=== PATIENT | male | born 1930 | race Caucasian/White ===

== ENCOUNTER 2016-07-19 11:35 | Emergency (ER) | payer MEDICARE, MEDICAID ==
[~2016-07-19] VITALS: Ht 177.8 cm; Wt 104.5 kg
[~2016-07-19 11:35] MED LIST: ATACAND; INSU100C2; lipitor
[2016-07-19 11:44] VITALS: BP 139/65; PULSE 59; RESP 18; O2SAT 96
--- NOTE | 2016-07-19 11:46 | ED.REPORT ---
HPI-General Illness Date of Service Jul 19, 2016 ED Provider: Demond Mason MD The patient is an 86 year old make with history of diabetes mellitus and s/p CABG, who presents to the emergency department by EMS for shortness of breath that he noticed around 0800 this morning. The patient has intermittent episodes of shortness of breath with exertion. His episode today was similar to previous episodes. He did not want to come to the hospital but his neighbor called medics and felt that he should be evaluated. He denies chest pain, cough, lower extremity swelling, fever, chills, vomiting or diarrhea. He denies history of COPD, CHF, asthma or blood clots. He denies any new medications or changes to medications. Nursing Notes Stated Complaint: SOB Chief Complaint: General Complaint Nursing Notes Reviewed: Yes Allergies: Uncoded Allergies: TETANUSTOXOID (Allergy, Severe, 03/03/09) Tetanus Toxoid (Allergy, Severe, 06/14/05) Miscellaneous Medications ([atacand]) ([lipitor]) Insulin Glargine-Expunged Drug, Do Not Renew! (Lantus-Expunged Drug, Do Not Renew!) 100 U/Ml Cartridge General Time Seen by MD: 11:45 Chief Complaint Other (shortness of breath) Hx Obtained From: Patient, EMS Arrived By: Ambulance Sudden in Onset?: No Onset Occurred: 1 - 4 hours ago Symptom Duration: 1 - 4 hours Severity: Current: No pain currently Severity: Maximum: No pain Recent Healthcare: No recent doctor visit, No recent hospitalization Similar Sx Previous: Yes Past Medical History Past Medical History Reports: Diabetes mellitus Past Surgical History Reports: CABG Family History Noncontributory Social History Other Social History: Good social support, Lives in [facility], Local resident Ambulatory Status Cane Review of Systems Full Review of Systems Constitutional: Denies: Chills, Fever Respiratory: Reports: Dyspnea on exertion, Shortness of breath, Denies: Non-productive cough, Prod cough, bloody, Prod cough, brown, Prod cough, clear, Prod cough, green, Prod cough, white, Prod cough, yellow Cardiovascular: Denies: Chest pain GI: Denies: Diarrhea, Vomiting Musculoskeletal: Denies: Extremity swelling Complete sys rev & neg: except as marked. Physical Exam Vital Signs Vital Signs Date Time Temp Pulse Resp B/P Pulse Ox O2 Delivery O2 Flow Rate FiO2 3/14/17 13:28 16 136/76 98 Room Air 07/19/16 11:44 36.6 59 18 139/65 96 Room Air Initial VS: Reviewed Head / Eyes: Atraumatic, Normocephalic, PERRL Neck: Supple, Non-tender, Full range of motion Abdomen / GI: Soft, Non-tender, No guarding, No rebound, No distention Lymphatic: No lymphadenopathy Extremities: Vascular intact, Neuro intact, No swelling, No tenderness Skin: Warm, Dry, No cyanosis Neurologic: Alert, Oriented, Nonfocal Psychiatric: Mood/affect normal, Behavior normal, Normal thought content General/Constitutional: Awake, Alert, Cooperative ENT: Airway patent Mouth: Positive: Mucous membranes dry Respiratory / Chest: Atraumatic, Breath sounds NL, Breath sounds = bilat, No respiratory distress, No rales, No rhonchi, No wheezing, No retractions, No stridor, No chest tenderness, No chest wall deformity Cardiovascular: Heart rate NL, Regular rhythm, Heart sounds NL, No gallop, No murmurs, No rubs, Cap refill not delayed, Peripheral circulation NL Lower Extremity / Pelvis / MS: Neurologic intact, Vascular intact No calf swelling or tenderness. No pitting edema. No palpale cords. Interpretation & Diagnostics Lab Results Interpretation Result Diagram: 07/19/16 1141 07/19/16 1141 Test 07/19/16 11:41 White Blood Count 8.1th/mm3 (3.8-10.1) Red Blood Count 4.04mil/mm3 (4.40-5.80) Hemoglobin 13.3g/dL (13.8-17.2) Hematocrit 37.7% (41.0-50.0) Mean Corpuscular Volume 93.3fL (81-100) Mean Corpuscular Hemoglobin 32.9pg (27.0-35.0) Mean Corpuscular Hemoglobin Concent 35.3% (32.0-37.0) Red Cell Distribution Width 13.3% (12.3-15.4) Platelet Count 175bil/L (150-400) Neutrophils (%) (Auto) 67.9% (40-74) Lymphocytes (%) (Auto) 20.1% (14-46) Monocytes (%) (Auto) 9.8% (4-12) Eosinophils (%) (Auto) 1.6% (0-5) Basophils (%) (Auto) 0.5% (0-3) Prothrombin Time 10.6sec (8.1-12.5) Prothromb Time International Ratio 0.99ratio Sodium Level 141mEq/L (134-144) Potassium Level 4.1mEq/L (3.5-5.2) Chloride Level 100mEq/L (97-108) Carbon Dioxide Level 25mmol/L (18-29) Blood Urea Nitrogen 22mg/dL (8-27) Creatinine 1.06mg/dL (0.76-1.27) Estimat Glomerular Filtration Rate 70mL/min (>59) Glucose Level 309mg/dL (60-99) Calcium Level 8.7mg/dL (8.5-10.1) Magnesium Level 2.2mg/dL (1.6-2.6) Total Bilirubin 0.8mg/dL (0.0-1.2) Aspartate Amino Transf (AST/SGOT) 27U/L (0-50) Alanine Aminotransferase (ALT/SGPT) 24U/L (0-44) Alkaline Phosphatase 49U/L (25-160) Troponin T 0.010ug/L (0.0-0.011) Pro-B-Type Natriuretic Peptide 458.8pg/mL (0-486) Total Protein 6.5g/dL (6.4-8.4) Albumin 3.9g/dL (3.4-5.0) ECG Interpretation ECG Interpretation: Sinus rhythm with a rate of 53 bpm Prolonged ND interval No acute ST changes No acute T wave abnormalities Borderline inferior Q waves No prior available for comparison Time: 12:27 Interpreted by: ED physician X-Ray Chest Interpretation Chest Xray Interpretation: IMPRESSION: No acute cardiopulmonary disease process. Dictated by: Kristine Gonsales MD, PhD on 07/19/2016 at 12:42 Interpretation / Wet Read by: Interpret - Radiologist Re-Eval/Medical Decision Med Decision/Clinical Course The patient is an 86 year old make with history of diabetes mellitus and CAD s/ p CABG, who presents to the emergency department by EMS for shortness of breath that he noticed around 0800 this morning. The patient reports that he experiences intermittent shortness of breath with exertion at baseline and that this was nothing out of the ordinary. He states that a neighbor called the ambulance and that he otherwise never would have called EMS or come to the emergency department for this. Upon arrival he is completely asymptomatic and in no respiratory distress with good oxygen saturation on room air and stable vital signs. CXR: Obtained, reviewed and interpreted by myself shows no evidence of acute infiltrates, effusions or pneumothorax. Cardiac and mediastinal silhouette normal. No bony or soft tissue abnormalities. EKG was obtained and interpreted by myself as documented above. Laboratory studies notable as below: No leukocytosis, hct 37.7, CBC otherwise unremarkable, CMP is unremarkable except glucose of 309, troponin neg, BNP 458, coag studies normal. Patient remained with stable vital signs and good oxygen saturation on room air throughout his emergency department visit. He continued to report being at his regular baseline. He was able to ambulate without any significant dyspnea. Examination of his lower extremity reveals no findings just DVT and he does not have any recent major risk factors for DVT. He is without tachypnea, tachycardia or hypoxia or major risk factors for pulmonary embolism. I do not feel that further workup for PE is indicated. Patient never had any chest pain and in the setting of symptoms occurring greater than 4 hours ago with negative troponin and negative initial screening EKG I feel that acute coronary syndrome is unlikely. No evidence of pneumonia or pneumothorax. Good air movement throughout both lung shepherd and no history of COPD or asthma. No pulmonary edema on chest x-ray and BNP not significantly elevated without any history of congestive heart failure. Patient continues to state that he would not have come to the emergency department unless his neighbor had called and that he feels at his regular baseline state. I feel that he is appropriate for discharge. Follow-up and return precautions were reviewed in detail and he was discharged in stable condition. Source of Hx: EMS Time of Eval: 13:15 Re-Evaluation/Progress Note: Rechecked the patient. Discussed plan for discharge. All questions were addressed. Counseled Regarding: Diagnosis, Lab results, Need for follow-up, When/why to return to ED Discharge & Departure Primary Impression: Dyspnea on exertion Additional Impressions: History of coronary artery disease History of heart artery stent Disposition: Home Discharge Condition All VS Reviewed: Yes Condition: Stable Additional Instructions: Thank you for seeking care at the emergency room. Our primary goal today in the ED was to evaluate you for any life-threatening conditions. Your evaluation was reassuring. You should follow-up with your primary doctor in the next week. You should return to the ED immediately if you develop shortness of breath at rest, fevers, vomiting, cough, chest pain, lightheadedness, weakness or any other concerning signs or symptoms. Thank you for letting us partake in your care today. Referrals: Maximilian Dean MD (PCP) Ana Mariaibcindy Attestation Portions of this note were transcribed by Lily Pickett. I, Dr. Mason personally performed the history, physical exam and medical decision-making; I reviewed and confirmed the accuracy of the information in the transcribed note. Signed by: Ashlyn Johnson, 07/19/2016 at 1315. copies to: Maximilian Dean MD, Beck O MD Jul 19, 2016 11:46 Lily Pickett Jul 19, 2016 11:48
[2016-07-19 11:52] LABS: BASOPHILS % (AUTO) 0.5 % (0-3); EOSINOPHILS % (AUTO) 1.6 % (0-5); MONOCYTES % (AUTO) 9.8 % (4-12); Mean Corpuscular Hemoglobin 32.9 pg (27.0-35.0); Mean Corpuscular Volume 93.3 fL (81-100); NEUTROPHILS % (AUTO) 67.9 % (40-74); Platelet Count 175 bil/L (150-400)
[2016-07-19 12:11] LABS: INR 0.99 ratio
[2016-07-19 12:20] LABS: TROPONIN T 0.01 ug/L (0.0-0.011)
[2016-07-19 12:33] LABS: Magnesium 2.2 mg/dL (1.6-2.6)
--- NOTE | 2016-07-19 12:45 | DRSVH ---
PROCEDURE: X-RAY CHEST ONE VIEW, PORTABLE ([id number]) INDICATIONS: SHORTNESS OF BREATH TECHNIQUE: One view of the chest was acquired. COMPARISON: [facility], CR, XR CHEST 2VW, 03/29/2016, 13:03. [facility], C R, CHEST 1VW (PORTABLE), 12/20/2007, 2:02. FINDINGS: Surgical changes and devices: Prior CABG procedure. Lungs and pleura: No pleural effusions or pneumothorax. Lungs are clear. Mediastinum: Mediastinal contours appear normal. Heart size is normal. Bones and chest wall: No suspicious bony lesions. Overlying soft tissues appear unremarkable. IMPRESSION: No acute cardiopulmonary disease process. Dictated by: Kristine Gonsales MD, PhD on 07/19/2016 at 12:42 Approved by: Kristine Gonsales MD, PhD on 07/19/2016 at 12:43
[2016-07-19 13:28] VITALS: BP 136/76; RESP 16; O2SAT 98
== END 2016-07-19 13:26 | disposition home or self-care (01) ==
LOC: SED 11:35 → EDBD 11:35 → EDUNIT# 11:35 → SED 13:26
DX: R06.09 Other forms of dyspnea (principal); E11.9 Type 2 diabetes mellitus without complications; Z86.79 Personal history of other diseases of the circulatory system; Z95.5 Presence of coronary angioplasty implant and graft; Z95.1 Presence of aortocoronary bypass graft

== ENCOUNTER 2016-08-28 21:31 | Emergency (ER) | payer MEDICARE, MEDICAID ==
[2016-08-28 21:33] VITALS: BP 151/74; PULSE 65; RESP 20; O2SAT 97
[2016-08-28 21:58] LABS: BASOPHILS % (AUTO) 0.3 % (0-3); EOSINOPHILS % (AUTO) 1.2 % (0-5); MONOCYTES % (AUTO) 10.3 % (4-12); Mean Corpuscular Hemoglobin 33.2 pg (27.0-35.0); Mean Corpuscular Volume 94.8 fL (81-100); NEUTROPHILS % (AUTO) 65.3 % (40-74); Platelet Count 147 bil/L (150-400)
--- NOTE | 2016-08-28 22:24 | ED.REPORT ---
HPI-General Illness Date of Service Aug 28, 2016 ED Provider: MD Reilly This is an 86 year old male with a history of DM, s/p CABG presenting to the emergency department due to sudden onset dyspnea that began 5 hours ago. Patient was watching TV when he suddenly became short of breath. Dyspnea is currently improved but is still present at this time. Patient also reports increased fatigue in the last six months. He denies nausea, vomiting, cough, chest pain, diaphoresis, abdominal pain, or bowel or bladder changes at this time. Patient had a similar episode three weeks ago for which he visited the ED and had a negative workup with diagnosis of exertional dyspnea. Nursing Notes Stated Complaint: SHORTNESS OF BREATH Chief Complaint: Respiratory Complaints Nursing Notes Reviewed: Yes Allergies: Coded Allergies: Tetanus Vaccines and Toxoid (Verified Allergy, Unknown, 08/28/16) Scheduled Furosemide (Furosemide) 40 Mg Tablet 40 MG PO DAILY Miscellaneous Medications ([atacand]) ([lipitor]) Insulin Glargine-Expunged Drug, Do Not Renew! (Lantus-Expunged Drug, Do Not Renew!) 100 U/Ml Cartridge General Time Seen by MD: 22:23 Chief Complaint Breathing problem Hx Obtained From: Patient Arrived By: Walk-in Sudden in Onset?: Yes Onset Occurred: Yesterday Symptom Duration: Since onset Severity: Current: No pain currently Recent Healthcare: No recent doctor visit, No recent hospitalization Similar Sx Previous: No Past Medical History Past Medical History Reports: Diabetes mellitus Past Surgical History Reports: CABG Family History Noncontributory Social History Other Social History: Good social support, Lives in [facility], Local resident Ambulatory Status Cane Review of Systems Full Review of Systems Constitutional: Denies: Chills, Fatigue Respiratory: Reports: Shortness of breath, Denies: Non-productive cough Cardiovascular: Denies: Chest pain GI: Denies: Abdominal pain, Constipation, Diarrhea, Nausea, Vomiting Male: Denies Dysuria Complete sys rev & neg: except as marked. Physical Exam Vital Signs Vital Signs Date Time Temp Pulse Resp B/P Pulse Ox O2 Delivery O2 Flow Rate FiO2 08/29/16 01:51 62 18 97 Room Air 08/29/16 00:00 58 14 146/55 99 Room Air 08/28/16 22:33 62 20 95 Room Air 08/28/16 21:33 36.1 65 20 151/74 97 Room Air Initial VS: Reviewed General/Constitutional: Well-developed, Well-nourished Head / Eyes: Atraumatic, Normocephalic, PERRL Neck: Supple, Non-tender, Full range of motion Abdomen / GI: Soft, Non-tender, No guarding, No rebound, No distention Extremities: Vascular intact, Neuro intact, No swelling, No tenderness Skin: Warm, Dry, No cyanosis Neurologic: Alert, Oriented, Nonfocal Psychiatric: Mood/affect normal, Behavior normal, Normal thought content Neck: No meningismus, Full range of motion, Non-tender Moderate JVD, 3 cm above sternal notch Respiratory / Chest: No respiratory distress, No wheezing Rales / Rhonchi: Positive: Rhonchi diffuse Cardiovascular: Heart rate NL, Regular rhythm, Heart sounds NL, Cap refill not delayed Lower Ext Edema: Positive: Bilateral 2+ Interpretation & Diagnostics CT ANGIOGRAM IMPRESSION: No evidence for PE. Cholelithiasis Radiologist: Phill Watson MD Lab Results Interpretation Result Diagram: 08/28/16215008/28/162150 Test 08/28/16 21:51 08/28/16 22:30 White Blood Count 7.3th/mm3 (3.8-10.1) Red Blood Count 3.85mil/mm3 (4.40-5.80) Hemoglobin 12.8g/dL (13.8-17.2) Hematocrit 36.5% (41.0-50.0) Mean Corpuscular Volume 94.8fL (81-100) Mean Corpuscular Hemoglobin 33.2pg (27.0-35.0) Mean Corpuscular Hemoglobin Concent 35.1% (32.0-37.0) Red Cell Distribution Width 12.8% (12.3-15.4) Platelet Count 147bil/L (150-400) Neutrophils (%) (Auto) 65.3% (40-74) Lymphocytes (%) (Auto) 22.8% (14-46) Monocytes (%) (Auto) 10.3% (4-12) Eosinophils (%) (Auto) 1.2% (0-5) Basophils (%) (Auto) 0.3% (0-3) D-Dimer 2.36mg/L FEU (<0.50) Sodium Level 138mEq/L (134-144) Potassium Level 3.9mEq/L (3.5-5.2) Chloride Level 102mEq/L (97-108) Carbon Dioxide Level 22mmol/L (18-29) Blood Urea Nitrogen 24mg/dL (8-27) Creatinine 0.98mg/dL (0.76-1.27) Estimat Glomerular Filtration Rate 77mL/min (>59) Glucose Level 264mg/dL (60-99) Calcium Level 9.0mg/dL (8.5-10.1) Total Bilirubin 0.4mg/dL (0.0-1.2) Aspartate Amino Transf (AST/SGOT) 19U/L (0-50) Alanine Aminotransferase (ALT/SGPT) 16U/L (0-44) Alkaline Phosphatase 52U/L (25-160) Troponin T 0.010ug/L (0.0-0.011) Pro-B-Type Natriuretic Peptide 433.7pg/mL (0-486) Total Protein 6.4g/dL (6.4-8.4) Albumin 3.7g/dL (3.4-5.0) Hold Beltrán Top Tube Received (Received) Urine Color Yellow (YELLOW) Urine Appearance Clear (CLEAR,HAZY) Urine pH 5.0 (5.0-8.0) Urine Specific Athena 1.025 (1.003-1.035) Urine Protein 30mg/dL (NEG,TRACE) Urine Glucose (UA) Negativemg/dL (NEGATIVE) Urine Ketones Negativemg/dL (NEGATIVE) Urine Occult Blood Small (NEGATIVE) Urine Nitrite Negative (NEGATIVE) Urine Bilirubin Negative (NEGATIVE) Urine Urobilinogen Normalmg/dL (NORMAL) Urine Leukocyte Esterase Negative (NEGATIVE) Urine RBC 0-2/hpf (0-2) Urine WBC 0-5/hpf (0-5) Urine Epithelial Cells Many/hpf (NONE-MOD) Urine Crystals None seen (NONE SEEN) Urine Bacteria None/hpf (NONE-FEW) Urine Hyaline Casts Rare/lpf (NONE) Urine Granular Casts None seen (NONE SEEN) Urine Waxy Casts None seen (NONE SEEN) Urine Red Blood Cell Casts None seen (NONE SEEN) Urine White Blood Cell Casts None seen (NONE SEEN) Urine Mucus Present (None Seen) Urine Trichomonas None seen (NONE SEEN) Urine Yeast None (NONE SEEN) Urine Culture Reflexed Not indicated X-Ray Chest Interpretation View: Portable Interpretation / Wet Read by: Wet read ED physician NL X-Ray Chest Findings: No acute disease Re-Eval/Medical Decision Med Decision/Clinical Course 86-year-old with coronary disease status post CABG presents with shortness of breath of relatively sudden onset. He had a similar episode a few weeks ago with no diagnostic findings. He has some moderate JVD and a few crackles at his bases, but relatively benign x-ray and a trivially elevated BNP. He is responded symptomatically to Lasix low dose. He does have significant peripheral edema area and he is discharged now with daily Lasix at 40 mg by mouth #10 dispensed. Follow up with PCP. Time of Eval: 01:29 Re-Evaluation/Progress Note: Plan for d/c, all questions addressed Counseled Regarding: Diagnosis, Lab results, Need for follow-up, When/why to return to ED Discharge & Departure Primary Impression: Peripheral edema Additional Impressions: Dyspnea Dyspnea type: unspecified Qualified Code: R06.00 - Dyspnea, unspecified CHF (congestive heart failure) Congestive heart failure type: unspecified congestive heart failure type Congestive heart failure chronicity: unspecified congestive heart failure chronicity Qualified Code: I50.9 - Heart failure, unspecified History of coronary artery disease Disposition: Home Discharge Condition All VS Reviewed: Yes Condition: Stable Patient Instructions: Congestive Heart Failure (ED), Leg Edema (ED) Additional Instructions: Take Lasix one tablet daily for the next four days. Call your doctor tomorrow for follow-up in the office this week. Return if you develop worsening breathing or chest discomfort despite treatment. Elevate your legs whenever possible. Referrals: Maximilian Dean MD (PCP) Scribe Attestation Portions of this note were transcribed by Pamela Mauricio. I, Dr. Grover personally performed the history, physical exam and medical decision-making; I reviewed and confirmed the accuracy of the information in the transcribed note. Signed by Ashlyn Klein, 08/28/2016 at 06:00. Mynor Grover MD Aug 28, 2016 22:24 PAMELA MAURICIO Aug 28, 2016 22:31
[2016-08-28 22:33] VITALS: PULSE 62; RESP 20; O2SAT 95
[2016-08-28 22:34] LABS: TROPONIN T 0.01 ug/L (0.0-0.011)
[2016-08-28 22:51] LABS: APPEARANCE,URINE CLEAR (CLEAR,HAZY); COLOR,URINE YELLOW (YELLOW); OCCULT BLOOD,URINE SMALL (NEGATIVE); UROBILINOGEN,URINE NORMAL (NORMAL)
[2016-08-29] VITALS: BP 146/55; PULSE 58; RESP 14; O2SAT 99
[2016-08-29] MEDS ORDERED: Furosemide 10 mg/mL 2 mL Inj IVPUSH ONE (00:15)
[2016-08-29] MEDS ORDERED: Furosemide 10 mg/mL 4 mL Inj IVPUSH ONE (00:15)
[2016-08-29] MEDS ORDERED: FURO40TA4 PO (01:28)
[2016-08-29 01:51] VITALS: PULSE 62; RESP 18; O2SAT 97
--- NOTE | 2016-08-29 09:13 | DRSVH ---
PROCEDURE: CT ANGIO CHEST PULMONARY EMBOLISM ([id number]) INDICATIONS: sob, elevated dimer, edema TECHNIQUE: After the administration of intravenous contrast, 2 mm thick sections acquired from the pulmonary api nabil to the posterior costophrenic angles. 3-dimensional maximum intensity projection (MIP) coronal a nd sagittal reformats were then acquired through the thorax. For radiation dose reduction, the follo wing was used: automated exposure control, adjustment of mA and/or kV according to patient size. COMPARISON: [facility], CT, CHEST ANGIO-PE, 12/19/2007, 21:08. FINDINGS: Image quality: Excellent. Pulmonary arteries: Pulmonary arteries are normal in size, and demonstrate no intraluminal filling d efects to suggest central pulmonary embolism. Lungs and pleura: Subcentimeter left lower lobe pulmonary nodules are unchanged compared to 12/19/07 a nd are likely benign. No pleural effusions or pneumothorax. Central and peripheral airways are paten t. Mediastinum: Heart size is normal, without pericardial effusion. No mediastinal or hilar adenopathy . Thoracic aorta is normal in caliber and enhancement. Esophagus is normal in caliber, with mild hi atal hernia. Bones and chest wall: No suspicious bony lesions. Ribs and thoracic spine appear intact throughout. Thyroid gland is unremarkable. No axillary or supraclavicular adenopathy. Abdomen: Multiple dependent gallbladder stones are noted without wall thickening, unchanged. Otherwi se, visualized upper abdominal solid organs appear normal in the early arterial phase of enhancement. IMPRESSION: 1. No evidence of pulmonary embolism. 2. Unchanged cholelithiasis. Dictated by: Lis Hernadez M.D. on 08/29/2016 at 8:54 Approved by: Lis Hernadez M.D. on 08/29/2016 at 9:12
--- NOTE | 2016-08-29 09:19 | DRSVH ---
PROCEDURE: X-RAY CHEST, TWO VIEWS ([id number]) INDICATIONS: short of breath TECHNIQUE: 2 views of the chest were acquired. COMPARISON: [facility], CR, XR CHEST 1VW (PORTABLE), 07/19/2016, 11:45. FINDINGS: Surgical changes and devices: Post median sternotomy. Lungs and pleura: No pleural effusions or pneumothorax. Lungs are clear. Mediastinum: Mediastinal contours are normal. Heart size is normal. Bones and chest wall: No suspicious bony abnormalities. Soft tissues appear unremarkable. IMPRESSION: No acute cardiopulmonary disease. Dictated by: Toby Scott [facility]GED WITH [facility] Interpreted: Kareem Pizarro MD on 08/29/2016 at 9:18 Transcribed by: JOHNATHAN on 08/29/2016 at 9:18 Approved by: Kareem Pizarro M.D. on 08/29/2016 at 10:51
== END 2016-08-29 01:52 | disposition home or self-care (01) ==
LOC: SED 21:31
DX: R60.0 Localized edema (principal); R06.00 Dyspnea, unspecified; I50.9 Heart failure, unspecified; E11.9 Type 2 diabetes mellitus without complications; I25.10 Atherosclerotic heart disease of native coronary artery without angina pectoris; Z95.1 Presence of aortocoronary bypass graft; Z88.7 Allergy status to serum and vaccine
CPT/HCPCS: 36415; 71020; 71275; 80053; 81000; 83880; 84484; 85025; 85378; 93005; 96374; 99285; J1940; Q9967